=== PATIENT | female | born 1990 | race Caucasian/White ===

== ENCOUNTER 2020-12-20 16:23 | Inpatient (IN) ==
[2020-12-20 17:29] LABS: Amphetamine Screen,Urine Positive ng/mL (Cutoff=1000); Barbiturate Screen,Urine Negative ng/mL (Cutoff=200); Benzodiazepines Screen,Urine Negative ng/mL (Cutoff=200); Bilirubin,Urine Negative (Negative); Blood,Urine Negative (Negative); Cannabinoid Screen,Urine Positive ng/mL (Cutoff = 50); Clarity,Urine Clear (Clear); Cocaine Screen,Urine Negative ng/mL (Cutoff= 300); Color,Urine Yellow (Yellow); Glucose,Urine (UA) Normal (Normal); Ketones,Urine Negative (Negative); Leukocyte Esterase,Urine Moderate (Negative); Mucus,Urine Few per lpf (None-Few); Nitrite,Urine Negative (Negative); Opiate Screen,Urine Negative ng/mL (Cutoff=300); PH,Urine 6.5 pH Units (5.0-8.0); Phencyclidine Screen,Urine Negative ng/mL (Cutoff=25); Protein,Urine 30 mg/dL (Neg-Trace); Specific Gravity,Urine > 1.030 (1.010-1.025); Squamous Epithelial Cell,Urine Moderate per hpf (None-Few)
[2020-12-20 17:34] LABS: Basophils % 0.5 %; Eosinophils # 0.2 K/mcL (0.0-0.6); Eosinophils % 3.1 %; Hematocrit 39.8 % (35.3-44.9); Hemoglobin 13.3 g/dL (11.5-15.4); Immature Granulocytes % 0.3 % (0-4); Lymphocytes # 1.8 K/mcL (0.6-4.6); Lymphocytes % 27.6 %; Mean Corpuscular HGB Conc 33.4 g/dL (31.6-35.5); Mean Corpuscular Hemoglobin 32.7 pg (28.0-33.3); Mean Corpuscular Volume 97.8 fL (83.0-100.0); Mean Platelet Volume 9.8 fL (9.4-12.4); Monocytes # 0.6 K/mcL (0.0-1.3); Monocytes % 9.2 %; Neutrophils # 3.9 K/mcL (1.6-8.9); Platelet Count 219 K/mcL (140-400); Red Blood Count 4.07 M/mcL (3.82-4.97); Red Cell Distribution Width 13.1 % (11.5-14.5); Segmented Neutrophils % 59.3 %; White Blood Count 6.5 K/mcL (4.3-11.1)
[2020-12-20 17:55] LABS: Acetaminophen < 10 mcg/mL (10-20); Alanine Aminotransferase 16 Units/L (7-52); Albumin/Globulin Ratio 1.5 (1.1-2.2); Alkaline Phosphatase 43 Units/L (34-104); Aspartate Amino Transferase 19 Units/L (13-39); BUN/Creatinine Ratio 26 (6-26); Bilirubin,Direct 0.1 mg/dL (0.0-0.2); Bilirubin,Indirect 0.5 mg/dL (0.0-1.0); Bilirubin,Total 0.6 mg/dL (0.3-1.0); Blood Urea Nitrogen 18 mg/dL (6-20); Calcium 9.4 mg/dL (8.6-10.3); Carbon Dioxide 26 mEq/L (23-29); Chloride 108 mEq/L (98-107); Ethanol < 10 mg/dL (Less than 10); Globulin 2.7 g/dL (2.4-3.5); Glucose 66 mg/dL (70-105); Osmolality,Calculated 292 (280-300); Potassium 4.8 mEq/L (3.5-5.1); Sodium 141 mEq/L (136-145); Total Protein 6.7 g/dL (6.4-8.9); eGFR For African Americans > 60 (> 60); eGFR For Non-African Americans > 60 (> 60)
[2020-12-20 18:14] LABS: Salicylate < 2.5 mg/dL (15.0-30.0)
[2020-12-20] MEDS ORDERED: Albuterol 2.5 MG/3 ML NEBULIZER IH ONE (21:19)
[2020-12-20] MEDS ORDERED: cephALEXin 500 MG CAPSULE PO ONE (21:59)
[2020-12-20 23:53] LABS: Influenza A PCR Negative (Negative); Influenza B PCR Negative (Negative); Resp. Syncytial Virus PCR Negative (Negative)
[2020-12-21 00:14] LABS: SARS-CoV-2 by PCR (In House) Negative (Negative)
[2020-12-21] MEDS ORDERED: haloperidoL 5 MG TABLET PO PRN (01:00)
[2020-12-21] MEDS ORDERED: Acetaminophen 325 MG TABLET PO PRN (01:00)
[2020-12-21] MEDS ORDERED: traZODone 50 MG TABLET PO PRN (01:00)
[2020-12-21] MEDS ORDERED: Haloperidol Lactate 5 MG/ML VIAL IM PRN (01:00)
[2020-12-21] MEDS: hydrOXYzine pamoate 25 MG CAPSULE PO PRN ×2 (02:34→20:53)
[2020-12-21] MEDS: Albuterol 2.5 MG/3 ML NEBULIZER IH PRN ×4 (02:45→20:53)
[2020-12-21] MEDS ORDERED: risperiDONE 1 MG TABLET PO SCH ×2 (09:00→21:00)
[2020-12-21] MEDS: Nicotine 21 MG PATCH.TD24 TD SCH (12:36)
[2020-12-21] MEDS: Nitrofurantoin (BID) 100 MG CAPSULE PO SCH (17:06)
[2020-12-21] MEDS: Budesonide/Formoterol 160/4.5 1 PUFF INH IH SCH (20:53)
[2020-12-22] MEDS: Nicotine 21 MG PATCH.TD24 TD SCH (09:49)
[2020-12-22] MEDS: Nitrofurantoin (BID) 100 MG CAPSULE PO SCH (09:50)
[2020-12-22] MEDS: Albuterol 2.5 MG/3 ML NEBULIZER IH PRN (09:57)
[2020-12-22 10:00] VITALS: BP 100/63; PULSE 85; TEMP 97.8
[2020-12-22] MEDS: Budesonide/Formoterol 160/4.5 1 PUFF INH IH SCH (11:13)
[2020-12-22 18:20] VITALS: O2SAT 97
== END 2020-12-22 13:25 | disposition home or self-care (01) | DRG 817 ==
LOC: EMEROOARM 16:23 → 1ANU 12-21 00:42
PROVIDERS: ADMIT Psychiatry & Neurology Psychiatry; ATTEND Psychiatry & Neurology Psychiatry